=== PATIENT | female | born 1975 | race Hispanic/Latino ===

== ENCOUNTER 2021-01-30 18:52 | Emergency (ER) | payer BC, OTHER ==
[2021-01-30] MEDS ORDERED: ONDANSETRON 4MG INJ ONE (19:46)
[2021-01-30] MEDS ORDERED: 0.9%NACL 50ML 50 ML IV ONE (21:32)
== END 2021-01-30 23:21 | disposition home or self-care (01) ==
LOC: EDH 18:52
DX: R11.2 Nausea with vomiting, unspecified (principal); Z90.49 Acquired absence of other specified parts of digestive tract; Z90.710 Acquired absence of both cervix and uterus
CPT/HCPCS: 96361; 96365; 96366; 96376; 99284; J2405

== ENCOUNTER 2022-08-06 17:25 | Emergency (ER) | payer BC ==
[~2022-08-06] VITALS: Ht 157.5 cm; Wt 65.8 kg
[2022-08-06] MEDS ORDERED: LIDOCAINE HCL 2% VISCOUS 15 ML UDCUP ONE (18:04)
[2022-08-06] MEDS ORDERED: MAG/ALUM/SIMETH 30 ML UDCUP ONE (18:04)
[2022-08-06] MEDS ORDERED: LIDOCAINE HCL 2% VISCOUS 15 ML UDCUP PO ONE (18:30)
[2022-08-06] MEDS ORDERED: MAG/ALUM/SIMETH 30 ML UDCUP PO ONE (18:30)
[2022-08-06 18:41] LABS: BASOPHILS % (AUTO) 0.5 % (0.0-5.0); EOSINOPHILS % (AUTO) 0.5 % (0.0-8.0); MEAN CORPUSCULAR HEMOGLOBIN 30.9 pg (27.0-33.0); MEAN CORPUSCULAR HGB CONC 34.4 g/dL (32.0-36.0); MEAN CORPUSCULAR VOLUME 89.8 fL (79-99); MONOCYTES % (AUTO) 3.7 % (3.0-13.0); PLATELET COUNT (AUTO) 324 K/uL (130-400); RED BLOOD CELL COUNT(AUTO) 4.01 MIL/uL (4.00-5.50); RED CELL DISTRIBUTION WIDTH 12.7 % (11.0-15.5); WHITE BLOOD COUNT (AUTO) 10.1 K/uL (4.8-10.8)
[2022-08-06] MEDS ORDERED: 0.9%NACL 1000ML 1,000 ML IV ONE (18:45)
[2022-08-06 19:06] LABS: CREATININE 0.8 mg/dL (0.5-1.5); POTASSIUM 3.5 mmol/L (3.5-5.1)
[2022-08-06 19:11] LABS: ALBUMIN 3.7 g/dL (3.5-5.0); TOTAL PROTEIN, SERUM 7.6 g/dL (6.0-8.3)
[2022-08-06] MEDS ORDERED: IOHEXOL 350 MG/ML 100ML INFUS..BTL IV ONE (19:21)
[2022-08-06 19:35] VITALS: BP 118/71
== END 2022-08-06 20:25 | disposition home or self-care (01) ==
LOC: EDH 17:25
DX: K22.4 Dyskinesia of esophagus (principal); Z88.8 Allergy status to other drugs, medicaments and biological substances; Z98.890 Other specified postprocedural states
CPT/HCPCS: 99285; 71260; 96360; 96361; 80053; 85025; 36415; 70491; J7030; Q9967

== ENCOUNTER 2022-12-31 08:16 | Emergency (ER) | payer BC ==
[~2022-12-31] VITALS: Ht 157.5 cm; Wt 65.8 kg
[2022-12-31 09:12] LABS: APPEARANCE,URINE CLEAR (CLEAR); BILIRUBIN,URINE NEGATIVE (NEGATIVE); COLOR,URINE YELLOW (YELLOW); GLUCOSE, URINE (UA) NEGATIVE (NEGATIVE); KETONES,URINE NEGATIVE (NEGATIVE); LEUKOCYTE ESTERASE ,URINE NEGATIVE Leu/uL (NEGATIVE); NITRATE,URINE NEGATIVE (NEGATIVE); OCCULT BLOOD,URINE NEGATIVE (NEGATIVE); PH,URINE 5.5 (5.0-8.0); PROTEIN,URINE NEGATIVE (NEGATIVE); UROBILINOGEN,URINE 0.2 mg/dL (0.2-1.0)
[2022-12-31 09:13] LABS: BASOPHILS % (AUTO) 0.8 % (0.0-5.0); EOSINOPHILS % (AUTO) 1.8 % (0.0-8.0); HEMATOCRIT 40.6 % (36-48); LYMPHOCYTES % (AUTO) 19.9 % (21.0-51.0); MONOCYTES % (AUTO) 5.7 % (3.0-13.0); NEUTROPHILS % (AUTO) 71.5 % (40.0-77.0); PLATELET COUNT (AUTO) 370 K/uL (130-400); RED BLOOD CELL COUNT(AUTO) 4.46 MIL/uL (4.00-5.50); RED CELL DISTRIBUTION WIDTH 13.2 % (11.0-15.5); WHITE BLOOD COUNT (AUTO) 7.4 K/uL (4.8-10.8)
[2022-12-31 09:25] LABS: CREATININE 0.9 mg/dL (0.5-1.5); POTASSIUM 3.9 mmol/L (3.5-5.1)
[2022-12-31] MEDS ORDERED: ONDANSETRON 4MG INJ IVP ONE (09:30)
[2022-12-31] MEDS ORDERED: KETOROLAC 30MG VIAL (30MG/ML) IVP ONE (09:30)
[2022-12-31] MEDS ORDERED: DiphenhydrAMINE HCL 50 MG/ML VIAL IV ONE (09:30)
[2022-12-31] MEDS ORDERED: FAMOTIDINE 20MG VIAL IV ONE (09:30)
[2022-12-31 09:44] LABS: ALBUMIN 3.8 g/dL (3.5-5.0); TOTAL PROTEIN, SERUM 7.8 g/dL (6.0-8.3)
[2022-12-31] MEDS ORDERED: IOHEXOL 350 MG/ML 100ML INFUS..BTL IV ONE (10:36)
[2022-12-31 11:43] VITALS: BP 105/56
[2022-12-31] MEDS ORDERED: FAMO-136 PO (12:16)
[2022-12-31] MEDS ORDERED: SUCR1TAB28 PO (12:16)
[2022-12-31] MEDS ORDERED: OMEP20CA12 PO (12:16)
== END 2022-12-31 12:53 | disposition home or self-care (01) ==
LOC: EDH 08:16
DX: K21.9 Gastro-esophageal reflux disease without esophagitis (principal); Z90.710 Acquired absence of both cervix and uterus; Z20.822 Contact with and (suspected) exposure to COVID-19
CPT/HCPCS: 99284; 74177; 96374; 96375; 87635; 80053; 83690; 85025; 87804 ×2; 81003; 36415; C9803; J1200; J3490; J2405; J1885; Q9967

== ENCOUNTER → 2023-01-10 | Outpatient (CLI) | payer BC ==
[~2023-01-10] MED LIST: FAMO-136 PO; OMEP20CA12 PO; SUCR1TAB28 PO
== END | disposition home or self-care (01) ==
LOC: RAH 07:22
PROVIDERS: ATTEND Internal Medicine Gastroenterology
DX: R10.11 Right upper quadrant pain (principal); R93.2 Abnormal findings on diagnostic imaging of liver and biliary tract
CPT/HCPCS: 78227; A9537

== ENCOUNTER 2023-02-23 05:57 | Day surgery (SDC) | payer BC ==
[2023-02-19 11:04] LABS: BASOPHILS % (AUTO) 0.5 % (0.0-5.0); EOSINOPHILS % (AUTO) 0.8 % (0.0-8.0); HEMATOCRIT 39.5 % (36-48); LYMPHOCYTES % (AUTO) 21.9 % (21.0-51.0); MEAN CORPUSCULAR HEMOGLOBIN 30.3 pg (27.0-33.0); MEAN CORPUSCULAR HGB CONC 33.2 g/dL (32.0-36.0); MEAN CORPUSCULAR VOLUME 91.4 fL (79-99); MONOCYTES % (AUTO) 3.6 % (3.0-13.0); NEUTROPHILS % (AUTO) 72.9 % (40.0-77.0); PLATELET COUNT (AUTO) 342 K/uL (130-400); RED BLOOD CELL COUNT(AUTO) 4.32 MIL/uL (4.00-5.50); RED CELL DISTRIBUTION WIDTH 12.9 % (11.0-15.5); WHITE BLOOD COUNT (AUTO) 7.6 K/uL (4.8-10.8)
[2023-02-19 11:16] LABS: ALBUMIN 3.6 g/dL (3.5-5.0); BILIRUBIN,DIRECT 0.1 mg/dL (0.0-0.3); CREATININE 0.7 mg/dL (0.5-1.5); POTASSIUM 4.6 mmol/L (3.5-5.1); TOTAL PROTEIN, SERUM 7.7 g/dL (6.0-8.3)
[2023-02-19 11:24] VITALS: BP 116/70
[~2023-02-23] VITALS: Ht 157.5 cm; Wt 69.7 kg
[2023-02-23] VITALS (17 sets, daily range): BP systolic 97–133; BP diastolic 46–77
[~2023-02-23 05:57] MED LIST changes: +DICY10CA13 PO; +ESOM40CA54 PO; -OMEP20CA12 PO; +ONDA4TAB10 PO; -SUCR1TAB28 PO; +VITAMIN D PO
[2023-02-23] MEDS ORDERED: LACTATED RINGERS 1000ML 1,000 ML IV ONE (06:08)
[2023-02-23] MEDS: CEFAZOLIN SODIUM 2 GM VIAL ONE ×2 (06:17→07:11)
[2023-02-23] MEDS ORDERED: BUPIVACAINE/EPI/PF 0.25% 30ML VIAL IJ SCH (07:00)
[2023-02-23] MEDS ORDERED: DEXAMETHASONE SOD PHOSPHATE 10MG/ML 1ML VIAL ONE (07:11)
[2023-02-23] MEDS ORDERED: SUCCINYLCHOLINE 200MG/10ML SYR ONE (07:11)
[2023-02-23] MEDS ORDERED: LIDOCAINE PF 100MG/5ML (2%) SYRINGE 5ML ONE (07:11)
[2023-02-23] MEDS ORDERED: ONDANSETRON 4MG INJ ONE ×2 (07:11→08:50)
[2023-02-23] MEDS ORDERED: NEOSTIGMINE 5MG/5ML SYR IV ONE (07:12)
[2023-02-23] MEDS ORDERED: PROPOFOL 10 MG/ML 20ML VIAL IV ONE (07:12)
[2023-02-23] MEDS ORDERED: GLYCOPYRROLATE 1 MG/5 ML SYRINGE ONE (07:12)
[2023-02-23] MEDS ORDERED: MIDAZOLAM HCL 1 MG/ML 2ML VIAL ONE (07:12)
[2023-02-23] MEDS ORDERED: ROCURONIUM 10MG/1ML SYR 10 MG/ML ML ONE (07:12)
[2023-02-23] MEDS ORDERED: FENTANYL CITRATE PF 50 MCG/1 ML 2ML VIAL ONE ×2 (07:15→08:47)
[2023-02-23] MEDS ORDERED: IOHEXOL-350 50ML VIAL IV ONE (07:33)
[2023-02-23] MEDS ORDERED: PHENYLEPHRINE HCL 10 MG/ML 1ML VIAL IV ONE (07:44)
[2023-02-23] MEDS ORDERED: METOCLOPRAMIDE 10 MG/2 ML VIAL ONE (08:11)
[2023-02-23] MEDS ORDERED: TRAM50TA4 PO (09:35)
[2023-02-23] MEDS ORDERED: DOCU-116 PO (09:36)
== END 2023-02-23 10:10 | disposition home or self-care (01) ==
LOC: DAH 05:57
PROVIDERS: ATTEND Surgery
DX: K81.1 Chronic cholecystitis (principal); Z20.822 Contact with and (suspected) exposure to COVID-19; K82.8 Other specified diseases of gallbladder; K21.9 Gastro-esophageal reflux disease without esophagitis; Z90.710 Acquired absence of both cervix and uterus; Z82.49 Family history of ischemic heart disease and other diseases of the circulatory system; Z83.3 Family history of diabetes mellitus; Z98.890 Other specified postprocedural states
CPT/HCPCS: 80076; 80048; 85025; 87426; 36415; 47563; A4663; J7030; C1758; J7120; J3010 ×2; J0330; J3490 ×2; J1100; J2710; J2001; J2250; J2704; J2405 ×2; J2765; J2370; Q9967; J0690; A4649 ×2; A4930 ×2; A4215; A4223; A4222; A4221; A4600

== ENCOUNTER 2023-04-11 00:53 | Emergency (ER) | payer BC ==
[~2023-04-11] VITALS: Ht 157.5 cm; Wt 71.2 kg
[~2023-04-11 00:53] MED LIST changes: +DOCU-116 PO; +TRAM50TA4 PO
[2023-04-11 00:58] VITALS: BP 118/78
[2023-04-11 02:17] LABS: BASOPHILS % (AUTO) 0.4 % (0.0-5.0); EOSINOPHILS % (AUTO) 2.3 % (0.0-8.0); HEMATOCRIT 36.5 % (36-48); LYMPHOCYTES % (AUTO) 15.4 % (21.0-51.0); MEAN CORPUSCULAR HEMOGLOBIN 30.2 pg (27.0-33.0); MEAN CORPUSCULAR VOLUME 88.8 fL (79-99); MONOCYTES % (AUTO) 4.5 % (3.0-13.0); NEUTROPHILS % (AUTO) 77.1 % (40.0-77.0); PLATELET COUNT (AUTO) 354 K/uL (130-400); RED BLOOD CELL COUNT(AUTO) 4.11 MIL/uL (4.00-5.50); RED CELL DISTRIBUTION WIDTH 13.6 % (11.0-15.5); WHITE BLOOD COUNT (AUTO) 9.9 K/uL (4.8-10.8)
[2023-04-11 02:31] LABS: CREATININE 0.9 mg/dL (0.5-1.5); POTASSIUM 3.9 mmol/L (3.5-5.1)
[2023-04-11 02:35] LABS: ALBUMIN 3.5 g/dL (3.5-5.0); TOTAL PROTEIN, SERUM 7.3 g/dL (6.0-8.3)
[2023-04-11 02:40] LABS: B-TYPE NATRIURETIC PEPTIDE < 5 pg/mL (0-100)
[2023-04-11] MEDS ORDERED: IOHEXOL-350 75 ML VIAL IV ONE (02:49)
[2023-04-11] MEDS ORDERED: GUAI1TBM19 PO (03:41)
[2023-04-11] MEDS ORDERED: PRED20TA3 PO (03:41)
[2023-04-11] MEDS ORDERED: ONDANSETRON 4MG INJ IVP ONE (04:00)
[2023-04-11] MEDS ORDERED: KETOROLAC 30MG VIAL (30MG/ML) IVP ONE (04:00)
== END 2023-04-11 04:03 | disposition home or self-care (01) ==
LOC: EDH 00:53
DX: J10.1 Influenza due to other identified influenza virus with other respiratory manifestations (principal); R07.89 Other chest pain; Z90.49 Acquired absence of other specified parts of digestive tract; K21.9 Gastro-esophageal reflux disease without esophagitis; Z20.822 Contact with and (suspected) exposure to COVID-19
CPT/HCPCS: 99284; 96374; 71270; 87635; 96375; 82550; 84484; 80053; 83880; 85025; 87880; 87804 ×2; 36415; 93005; C9803; J2405; J1885; Q9967

== ENCOUNTER → 2024-01-02 | Outpatient (CLI) | payer BC ==
[~2024-01-02] MED LIST changes: -DICY10CA13 PO; +DICY10CA2 PO; +GUAI1TBM19 PO; +PRED20TA3 PO
== END ==
LOC: RAH 07:05
PROVIDERS: ATTEND Internal Medicine
DX: R11.0 Nausea (principal)
CPT/HCPCS: 78264; A9541

== ENCOUNTER 2024-03-10 21:19 | Emergency (ER) | payer BC ==
[~2024-03-10] VITALS: Ht 157.5 cm; Wt 73.0 kg
[~2024-03-10 21:19] MED LIST changes: -ESOM40CA54 PO; +ESOM40CA66 PO; +ONDA-243 PO; -ONDA4TAB10 PO
[2024-03-10 21:50] LABS: BASOPHILS # (AUTO) 0.04 K/uL (0.00-0.20); BASOPHILS % (AUTO) 0.4 % (0.0-5.0); HEMATOCRIT 35.4 % (36-48); IMMATURE GRANULOCYTE ABSOLUTE 0.04 K/uL (0-1); LYMPHOCYTES # (AUTO) 2.5 K/uL (1.0-4.8); MEAN CORPUSCULAR HEMOGLOBIN 30.3 pg (27.0-33.0); MEAN CORPUSCULAR HGB CONC 33.9 g/dL (32.0-36.0); MEAN CORPUSCULAR VOLUME 89.4 fL (79-99); MONOCYTES # (AUTO) 0.6 K/uL (0.1-1.0); MONOCYTES % (AUTO) 6.1 % (3.0-13.0); NEUTROPHILS # (AUTO) 6.7 K/uL (1.8-7.7); NEUTROPHILS % (AUTO) 66.1 % (40.0-77.0); PLATELET COUNT (AUTO) 287 K/uL (130-400); RED BLOOD CELL COUNT(AUTO) 3.96 MIL/uL (4.00-5.50); RED CELL DISTRIBUTION WIDTH 13.5 % (11.0-15.5); WHITE BLOOD COUNT (AUTO) 10.1 K/uL (4.8-10.8)
[2024-03-10 22:02] LABS: CREATININE 0.8 mg/dL (0.5-1.0); POTASSIUM 3.7 mmol/L (3.5-5.1)
[2024-03-10 22:03] LABS: INR <= 0.93 (0.85-1.15); PROTHROMBIN TIME 9.9 SEC (9.6-11.6)
[2024-03-10 22:04] LABS: APPEARANCE,URINE CLEAR (CLEAR); BILIRUBIN,URINE NEGATIVE (NEGATIVE); COLOR,URINE COLORLESS (YELLOW); GLUCOSE, URINE (UA) NEGATIVE (NEGATIVE); KETONES,URINE NEGATIVE (NEGATIVE); LEUKOCYTE ESTERASE ,URINE NEGATIVE Leu/uL (NEGATIVE); NITRATE,URINE NEGATIVE (NEGATIVE); OCCULT BLOOD,URINE NEGATIVE (NEGATIVE); PH,URINE 6.5 (5.0-8.0); PROTEIN,URINE NEGATIVE (NEGATIVE); UROBILINOGEN,URINE 0.2 mg/dL (0.2-1.0)
[2024-03-10 22:05] LABS: PARTIAL THROMBOPLASTIN TIME 24.2 SEC (26.3-35.5)
[2024-03-10 22:06] LABS: ADD UA MICROSCOPIC YES
[2024-03-10 22:07] LABS: BACTERIA,URINE RARE /HPF (None Seen); RBC,URINE 0-1 /HPF (0-1); SQUAMOUS EPITHELIAL CELL,UR RARE /HPF (0-2); WBC,URINE 0-1 /HPF (0-1)
[2024-03-10 22:07] LABS: ALBUMIN 3.5 g/dL (3.5-5.0); BILIRUBIN,TOTAL 0.2 mg/dL (0.2-1.0); TOTAL PROTEIN, SERUM 7.3 g/dL (6.0-8.3)
[2024-03-10] MEDS ORDERED: DIPHENHYDRAMINE HCL 25 MG CAPSULE PO ONE (23:00)
[2024-03-10] MEDS ORDERED: FAMOTIDINE 20MG TAB PO ONE (23:00)
[2024-03-10] MEDS: FAMOTIDINE 20MG TAB ONE (23:09)
[2024-03-10] MEDS: DIPHENHYDRAMINE HCL 25 MG CAPSULE ONE (23:09)
[2024-03-10] MEDS ORDERED: [UNRECOGNIZED DRUG - CODE] PO (23:54)
[2024-03-10] MEDS ORDERED: FAMO-136 PO (23:54)
[2024-03-10] MEDS ORDERED: DIPH-1242 PO (23:54)
[2024-03-10 23:55] VITALS: BP 118/74; PULSE 88; RESP 16; O2SAT 98
== END 2024-03-10 23:58 | disposition home or self-care (01) ==
LOC: EDH 21:19
DX: T78.49XA Other allergy, initial encounter (principal); K21.9 Gastro-esophageal reflux disease without esophagitis; Z79.899 Other long term (current) drug therapy; D69.6 Thrombocytopenia, unspecified; Z90.49 Acquired absence of other specified parts of digestive tract; Z90.710 Acquired absence of both cervix and uterus; Z98.890 Other specified postprocedural states; Z88.8 Allergy status to other drugs, medicaments and biological substances; X58.XXXA Exposure to other specified factors, initial encounter
CPT/HCPCS: 99283; 80053; 84703; 85025; 85610; 85730; 81001; 36415; Q0163

== ENCOUNTER 2024-03-14 13:59 | Emergency (ER) | payer BC ==
[~2024-03-14] VITALS: Ht 157.5 cm; Wt 71.7 kg
[~2024-03-14 13:59] MED LIST changes: +DIPH-1242 PO; +ESOM40CA54 PO; -ESOM40CA66 PO; -ONDA-243 PO; +ONDA4TAB10 PO; +[UNRECOGNIZED DRUG - CODE] PO
[2024-03-14 14:31] LABS: CREATININE 0.8 mg/dL (0.5-1.0); POTASSIUM 3.8 mmol/L (3.5-5.1)
[2024-03-14 14:36] LABS: BASOPHILS # (AUTO) 0.04 K/uL (0.00-0.20); BASOPHILS % (AUTO) 0.5 % (0.0-5.0); EOSINOPHILS # (AUTO) 0.13 K/uL (0.00-0.70); EOSINOPHILS % (AUTO) 1.6 % (0.0-8.0); HEMATOCRIT 37.8 % (36-48); IMMATURE GRANULOCYTE ABSOLUTE 0.03 K/uL (0-1); LYMPHOCYTES # (AUTO) 2.4 K/uL (1.0-4.8); LYMPHOCYTES % (AUTO) 29.7 % (21.0-51.0); MEAN CORPUSCULAR HEMOGLOBIN 30.4 pg (27.0-33.0); MEAN CORPUSCULAR HGB CONC 34.4 g/dL (32.0-36.0); MEAN CORPUSCULAR VOLUME 88.3 fL (79-99); MONOCYTES # (AUTO) 0.5 K/uL (0.1-1.0); MONOCYTES % (AUTO) 5.5 % (3.0-13.0); NEUTROPHILS # (AUTO) 5.1 K/uL (1.8-7.7); NEUTROPHILS % (AUTO) 62.3 % (40.0-77.0); PLATELET COUNT (AUTO) 350 K/uL (130-400); RED BLOOD CELL COUNT(AUTO) 4.28 MIL/uL (4.00-5.50); RED CELL DISTRIBUTION WIDTH 13.5 % (11.0-15.5); WHITE BLOOD COUNT (AUTO) 8.2 K/uL (4.8-10.8)
[2024-03-14] MEDS: DiphenhydrAMINE HCL 25 MG/10 ML ELIXIR UDCUP PO STA (14:45)
[2024-03-14 16:06] LABS: HCG,QUALITATIVE URINE NEGATIVE (NEGATIVE)
[2024-03-14 16:11] LABS: APPEARANCE,URINE CLEAR (CLEAR); BILIRUBIN,URINE NEGATIVE (NEGATIVE); COLOR,URINE COLORLESS (YELLOW); GLUCOSE, URINE (UA) NEGATIVE (NEGATIVE); KETONES,URINE NEGATIVE (NEGATIVE); LEUKOCYTE ESTERASE ,URINE NEGATIVE Leu/uL (NEGATIVE); NITRATE,URINE NEGATIVE (NEGATIVE); OCCULT BLOOD,URINE NEGATIVE (NEGATIVE); PROTEIN,URINE NEGATIVE (NEGATIVE); UROBILINOGEN,URINE 0.2 mg/dL (0.2-1.0)
[2024-03-14 16:16] LABS: BACTERIA,URINE RARE /HPF (None Seen); MUCUS,URINE RARE LPF (None Seen); RBC,URINE 0-1 /HPF (0-1); SQUAMOUS EPITHELIAL CELL,UR RARE /HPF (0-2); WBC,URINE 0-1 /HPF (0-1)
[2024-03-14 17:35] VITALS: BP 130/78; PULSE 95; RESP 18; O2SAT 99
[2024-03-14] MEDS ORDERED: LORA10TA7 PO (17:38)
[2024-03-14] MEDS ORDERED: PANT40TA55 PO (17:38)
[2024-03-14] MEDS ORDERED: PRED10TA23 PO (17:38)
== END 2024-03-14 17:46 | disposition home or self-care (01) ==
LOC: EDH 13:59
DX: T78.40XA Allergy, unspecified, initial encounter (principal); K21.9 Gastro-esophageal reflux disease without esophagitis; Z90.49 Acquired absence of other specified parts of digestive tract; Z90.710 Acquired absence of both cervix and uterus; X58.XXXA Exposure to other specified factors, initial encounter
CPT/HCPCS: 36415; 70490; 80048; 81001; 81025; 85025

== ENCOUNTER 2024-03-21 17:17 | Emergency (ER) | payer BC ==
[~2024-03-21] VITALS: Ht 157.5 cm; Wt 69.9 kg
[~2024-03-21 17:17] MED LIST changes: -ESOM40CA54 PO; +ESOM40CA66 PO; +LORA10TA7 PO; +ONDA-243 PO; -ONDA4TAB10 PO; +PANT40TA55 PO; +PRED10TA23 PO
[2024-03-21] MEDS: 0.9%NACL 1000ML 1,000 ML IV ONE (18:41)
[2024-03-21 18:49] LABS: HCG,QUALITATIVE URINE NEGATIVE (NEGATIVE)
[2024-03-21 18:50] LABS: APPEARANCE,URINE CLEAR (CLEAR); BILIRUBIN,URINE NEGATIVE (NEGATIVE); COLOR,URINE COLORLESS (YELLOW); GLUCOSE, URINE (UA) NEGATIVE (NEGATIVE); KETONES,URINE NEGATIVE (NEGATIVE); LEUKOCYTE ESTERASE ,URINE NEGATIVE Leu/uL (NEGATIVE); NITRATE,URINE NEGATIVE (NEGATIVE); OCCULT BLOOD,URINE NEGATIVE (NEGATIVE); PROTEIN,URINE NEGATIVE (NEGATIVE); UROBILINOGEN,URINE 0.2 mg/dL (0.2-1.0)
[2024-03-21 18:51] LABS: ADD UA MICROSCOPIC NO
[2024-03-21 18:56] LABS: BASOPHILS # (AUTO) 0.07 K/uL (0.00-0.20); BASOPHILS % (AUTO) 0.6 % (0.0-5.0); EOSINOPHILS # (AUTO) 0.05 K/uL (0.00-0.70); EOSINOPHILS % (AUTO) 0.4 % (0.0-8.0); HEMATOCRIT 37.7 % (36-48); IMMATURE GRANULOCYTE ABSOLUTE 0.04 K/uL (0-1); LYMPHOCYTES % (AUTO) 15.9 % (21.0-51.0); MEAN CORPUSCULAR HEMOGLOBIN 30.4 pg (27.0-33.0); MEAN CORPUSCULAR VOLUME 89.5 fL (79-99); MONOCYTES # (AUTO) 0.5 K/uL (0.1-1.0); MONOCYTES % (AUTO) 4.4 % (3.0-13.0); NEUTROPHILS # (AUTO) 9.7 K/uL (1.8-7.7); NEUTROPHILS % (AUTO) 78.4 % (40.0-77.0); PLATELET COUNT (AUTO) 351 K/uL (130-400); RED BLOOD CELL COUNT(AUTO) 4.21 MIL/uL (4.00-5.50); RED CELL DISTRIBUTION WIDTH 13.7 % (11.0-15.5); WHITE BLOOD COUNT (AUTO) 12.4 K/uL (4.8-10.8)
[2024-03-21 19:06] LABS: CREATININE 0.7 mg/dL (0.5-1.0); INR <= 0.93 (0.85-1.15); POTASSIUM 4.4 mmol/L (3.5-5.1); PROTHROMBIN TIME 10.4 SEC (9.6-11.6)
[2024-03-21 19:07] LABS: PARTIAL THROMBOPLASTIN TIME 23.6 SEC (26.3-35.5)
[2024-03-21] MEDS: FAMOTIDINE 20MG VIAL IV ONE (19:48)
[2024-03-21] MEDS: ONDANSETRON 4MG INJ IVP ONE (19:48)
[2024-03-21 20:08] VITALS: BP 108/62; PULSE 110; RESP 18; O2SAT 97
[2024-03-27] MEDS ORDERED: METH4TAB3 PO (00:43)
== END 2024-03-21 20:16 | disposition home or self-care (01) ==
LOC: EDH 17:17
DX: R53.1 Weakness (principal); E86.0 Dehydration; R13.10 Dysphagia, unspecified; R55 Syncope and collapse; K21.9 Gastro-esophageal reflux disease without esophagitis; Z88.8 Allergy status to other drugs, medicaments and biological substances; Z79.899 Other long term (current) drug therapy; Z90.711 Acquired absence of uterus with remaining cervical stump; Z90.49 Acquired absence of other specified parts of digestive tract; Z98.890 Other specified postprocedural states
CPT/HCPCS: 99284; 96374; 96361; 96375; 82550; 84484; 80048; 85025; 85610; 85730; 81003; 81025; 36415; 93005; J3490; J7030; J2405

== ENCOUNTER → 2024-03-26 | Emergency (ER) | payer BC ==
[~2024-03-26] VITALS: Ht 157.5 cm; Wt 68.5 kg
[~2024-03-26] MED LIST changes: +METH4TAB3 PO
[2024-03-26 22:09] LABS: BASOPHILS # (AUTO) 0.08 K/uL (0.00-0.20); BASOPHILS % (AUTO) 0.6 % (0.0-5.0); EOSINOPHILS # (AUTO) 0.05 K/uL (0.00-0.70); EOSINOPHILS % (AUTO) 0.4 % (0.0-8.0); HEMATOCRIT 39.5 % (36-48); IMMATURE GRANULOCYTE ABSOLUTE 0.05 K/uL (0-1); LYMPHOCYTES # (AUTO) 2.6 K/uL (1.0-4.8); LYMPHOCYTES % (AUTO) 18.3 % (21.0-51.0); MEAN CORPUSCULAR HEMOGLOBIN 30.8 pg (27.0-33.0); MEAN CORPUSCULAR HGB CONC 34.2 g/dL (32.0-36.0); MONOCYTES # (AUTO) 0.7 K/uL (0.1-1.0); MONOCYTES % (AUTO) 5.3 % (3.0-13.0); NEUTROPHILS # (AUTO) 10.5 K/uL (1.8-7.7); PLATELET COUNT (AUTO) 330 K/uL (130-400); RED BLOOD CELL COUNT(AUTO) 4.39 MIL/uL (4.00-5.50); RED CELL DISTRIBUTION WIDTH 14.2 % (11.0-15.5); WHITE BLOOD COUNT (AUTO) 13.9 K/uL (4.8-10.8)
[2024-03-26] MEDS: FAMOTIDINE 20MG VIAL IV ONE (22:15)
[2024-03-26] MEDS: SOLU-MEDROL 125MG VIAL IVP ONE (22:15)
[2024-03-26] MEDS: DiphenhydrAMINE HCL 50 MG/ML VIAL IV ONE (22:15)
[2024-03-26 22:19] LABS: CREATININE 0.6 mg/dL (0.5-1.0); POTASSIUM 4.2 mmol/L (3.5-5.1)
[2024-03-26 22:23] LABS: ALBUMIN 3.8 g/dL (3.5-5.0); BILIRUBIN,TOTAL 0.4 mg/dL (0.2-1.0); TOTAL PROTEIN, SERUM 7.3 g/dL (6.0-8.3)
[2024-03-26] MEDS: ONDANSETRON 4MG INJ IVP ONE (23:23)
[2024-03-26] MEDS: 0.9%NACL 1000ML 1,000 ML IV SCH (23:40)
[2024-03-26 23:56] LABS: APPEARANCE,URINE CLEAR (CLEAR); BILIRUBIN,URINE NEGATIVE (NEGATIVE); COLOR,URINE COLORLESS (YELLOW); GLUCOSE, URINE (UA) NEGATIVE (NEGATIVE); KETONES,URINE 60 mg/dL (NEGATIVE); LEUKOCYTE ESTERASE ,URINE NEGATIVE Leu/uL (NEGATIVE); NITRATE,URINE NEGATIVE (NEGATIVE); OCCULT BLOOD,URINE NEGATIVE (NEGATIVE); PH,URINE 6.5 (5.0-8.0); PROTEIN,URINE NEGATIVE (NEGATIVE); UROBILINOGEN,URINE 0.2 mg/dL (0.2-1.0)
[2024-03-26 23:57] LABS: ADD UA MICROSCOPIC YES
[2024-03-26 23:58] LABS: HCG,QUALITATIVE URINE NEGATIVE (NEGATIVE)
[2024-03-27] LABS: BACTERIA,URINE RARE /HPF (None Seen); RBC,URINE 0-1 /HPF (0-1); SQUAMOUS EPITHELIAL CELL,UR RARE /HPF (0-2); WBC,URINE 0-1 /HPF (0-1)
[2024-03-27 00:30] VITALS: BP 135/80; PULSE 100; RESP 18; O2SAT 99
== END | disposition home or self-care (01) ==
LOC: EDH 21:17
DX: R13.10 Dysphagia, unspecified (principal); Z88.8 Allergy status to other drugs, medicaments and biological substances; Z90.710 Acquired absence of both cervix and uterus; Z90.49 Acquired absence of other specified parts of digestive tract; Z79.899 Other long term (current) drug therapy
CPT/HCPCS: 99284; 96374; 96375; 96361; 80053; 85025; 81001; 81025; 36415; J1200; J3490; J7030; J2919; J2405

== ENCOUNTER 2024-04-23 00:23 | Emergency (ER) | payer BC ==
[~2024-04-23] VITALS: Ht 157.5 cm; Wt 68.9 kg
[2024-04-23] MEDS: ONDANSETRON 4MG INJ IVP ONE ×2 (00:58→05:27)
[2024-04-23 01:06] LABS: BASOPHILS # (AUTO) 0.06 K/uL (0.00-0.20); BASOPHILS % (AUTO) 0.5 % (0.0-5.0); EOSINOPHILS # (AUTO) 0.25 K/uL (0.00-0.70); EOSINOPHILS % (AUTO) 1.9 % (0.0-8.0); HEMATOCRIT 36.2 % (36-48); IMMATURE GRANULOCYTE ABSOLUTE 0.03 K/uL (0-1); LYMPHOCYTES # (AUTO) 2.5 K/uL (1.0-4.8); LYMPHOCYTES % (AUTO) 19.4 % (21.0-51.0); MEAN CORPUSCULAR HEMOGLOBIN 30.6 pg (27.0-33.0); MEAN CORPUSCULAR HGB CONC 34.5 g/dL (32.0-36.0); MEAN CORPUSCULAR VOLUME 88.7 fL (79-99); MONOCYTES # (AUTO) 0.7 K/uL (0.1-1.0); MONOCYTES % (AUTO) 5.6 % (3.0-13.0); NEUTROPHILS # (AUTO) 9.3 K/uL (1.8-7.7); NEUTROPHILS % (AUTO) 72.4 % (40.0-77.0); PLATELET COUNT (AUTO) 376 K/uL (130-400); RED BLOOD CELL COUNT(AUTO) 4.08 MIL/uL (4.00-5.50); RED CELL DISTRIBUTION WIDTH 13.5 % (11.0-15.5); WHITE BLOOD COUNT (AUTO) 12.8 K/uL (4.8-10.8)
[2024-04-23 01:15] LABS: RAPID GROUP A STREP negative (NEGATIVE)
[2024-04-23 01:17] LABS: CREATININE 0.7 mg/dL (0.5-1.0); POTASSIUM 3.2 mmol/L (3.5-5.1)
[2024-04-23 01:20] LABS: SARS-CoV-2, RNA, NAAT NEGATIVE SARS CoV-2 (NEGATIVE)
[2024-04-23 01:22] LABS: ALBUMIN 3.4 g/dL (3.5-5.0); BILIRUBIN,TOTAL 0.3 mg/dL (0.2-1.0); TOTAL PROTEIN, SERUM 7.2 g/dL (6.0-8.3)
[2024-04-23 01:25] LABS: INFLUENZA TYPE A Negative For Type A (NEGATIVE); INFLUENZA TYPE B Negative For Type B (NEGATIVE)
[2024-04-23] MEDS: FAMOTIDINE 20MG VIAL IV ONE (02:14)
[2024-04-23] MEDS ORDERED: FAMO20TA8 PO (02:34)
[2024-04-23] MEDS: 0.9% NACL 500ML IV.SOLN 500 ML IV ONE (03:18)
[2024-04-23] MEDS: POTASSIUM CHLORIDE 20MEQ/100ML 100 ML IV ONE (03:18)
[2024-04-23 05:34] VITALS: BP 121/69; PULSE 76; RESP 18; O2SAT 99
== END 2024-04-23 05:35 | disposition home or self-care (01) ==
LOC: EDH 00:23
DX: K21.9 Gastro-esophageal reflux disease without esophagitis (principal); R13.10 Dysphagia, unspecified; Z79.52 Long term (current) use of systemic steroids; Z79.899 Other long term (current) drug therapy; Z90.49 Acquired absence of other specified parts of digestive tract; Z90.710 Acquired absence of both cervix and uterus; Z20.822 Contact with and (suspected) exposure to COVID-19
CPT/HCPCS: 99284; 96374; 70490; 87635; 96375; 80053; 84703; 85025; 87880; 87804 ×2; 36415; 96376; J7040; J3490; J2405 ×2; J3480

== ENCOUNTER 2024-06-16 18:13 | Emergency (ER) | payer BC ==
[~2024-06-16] VITALS: Ht 157.5 cm; Wt 68.0 kg
[~2024-06-16 18:13] MED LIST changes: +FAMO20TA8 PO
[2024-06-16 18:27] VITALS: TEMP 98.2
[2024-06-16] MEDS: GLUCAGON 1MG KIT 1 MG ML IV SCH (19:29)
[2024-06-16] MEDS: ONDANSETRON 4MG INJ IVP ONE (19:30)
[2024-06-16] MEDS: FAMOTIDINE 20MG VIAL IV ONE (19:30)
[2024-06-16 19:47] VITALS: BP 139/81; PULSE 100; RESP 19; O2SAT 100
[2024-06-16] MEDS: metoCLOPRAmide 10 MG/2 ML VIAL IVP ONE (20:34)
[2024-06-16] MEDS ORDERED: FAMOTIDINE 20MG VIAL IV SCH (21:00)
== END 2024-06-16 20:48 | disposition home or self-care (01) ==
LOC: EDH 18:13
DX: R13.10 Dysphagia, unspecified (principal); Z79.899 Other long term (current) drug therapy; Z88.8 Allergy status to other drugs, medicaments and biological substances; Z90.49 Acquired absence of other specified parts of digestive tract; Z90.710 Acquired absence of both cervix and uterus; Z98.890 Other specified postprocedural states
CPT/HCPCS: 99284; 96374; 96375; J1610; J3490; J2405; J2765

== ENCOUNTER 2025-09-06 02:38 | Emergency (ER) | payer BC, OTHER ==
[~2025-09-06] VITALS: Ht 157.5 cm; Wt 63.0 kg
[~2025-09-06 02:38] MED LIST changes: +DICY-20 PO; -DICY10CA2 PO
--- NOTE | 2025-09-06 02:42 | NUR ---
UA CUP PROVIDED
--- NOTE | 2025-09-06 02:55 | NUR ---
UA COLLECTED AND SENT FOR ANY FUTURE ORDERS
--- NOTE | 2025-09-06 02:55 | ERN ---
ED Note History of Present Illness Stated Complaint: N/V/D ABD CRAMPING Chief Complaint: Multiple Complaints Time Seen by MD: 02:42 Time Seen by Midlevel: 02:42 Dictation: The patient is a 50-year-old female with a history of myotomy back in January in [place] , cholecystectomy, hysterectomy who presents to the emergency department with complaints of epigastric abdominal pain that radiates to her chest, nausea nonbloody vomiting, nonbloody diarrhea onset yesterday. Patient denies any fevers. Allergies: Coded Allergies: linaclotide (Unverified Allergy, Unknown, throat swelling, 10/04/16) Home Meds Active Scripts Famotidine (Famotidine) 20 Mg Tablet, 20 MG PO DAILY, #30 TAB 0 Refills Prov:[facility]YAN [facility]ISTA [facility] 04/23/24 Methylprednisolone (Medrol) 4 Mg Tab.ds.pk, 4 MG PO DAILY for 6 Days, #1 PACK Prov:ANTONIO SOTELO 03/27/24 Pantoprazole Sodium (Protonix) 40 Mg Ectab, 40 MG PO DAILY for 30 Days, #30 TAB.EC Prov:TERI MASTERS MD 03/14/24 Loratadine (Loratadine) 10 Mg Tablet, 10 MG PO DAILY for 30 Days, #30 TAB Prov:TERI MASTERS MD 03/14/24 Prednisone (Prednisone) 10 Mg Tab.ds.pk, 10 MG PO BID for 7 Days, #1 BOTTLE Prov:TERI MASTERS MD 03/14/24 Meclizine HCl (Dramamine) 25 Mg Tablet, 25 MG PO DAILYBKFST for 14 Days, #14 TAB Prov:GIRMA ROPER [facility] 03/10/24 Diphenhydramine HCl (Benadryl) 25 Mg Cap, 25 MG PO DAILYDINNER for 5 Days, #5 CAP Prov:GIRMA ROPER 03/10/24 Famotidine (Pepcid) 20 Mg Tablet, 20 MG PO DAILY for 5 Days, #5 TAB Prov:GIRMA ROPER 03/10/24 Prednisone (Prednisone) 20 Mg Tablet, 1 TAB PO AD for 6 Days, #14 TAB 0 Refills TAKE 3 TAB BY MOUTH daily X3 DAYS, THEN TAKE 2 TAB BY MOUTH daily X2 DAYS, THEN TAKE 1 TAB BY MOUTH ONCE A DAY X1 DAY. Prov:ABHINAV IBARRA MD 04/11/23 Guaifenesin/Dextromethorphan (Mucinex Dm ER 1,200-60 mg Tab) 1 Each Tbmp.12hr, 1 EACH PO BID, #30 TAB Prov:ABHINAV IBARRA MD 04/11/23 Famotidine (Pepcid) 20 Mg Tablet, 20 MG PO Q12H for 14 Days, #28 TAB Prov:LEILA MOULTON MD 12/31/22 Reported Medications Docusate Sodium (Colace) 100 Mg Capsule, 100 MG PO BID, CAP 02/23/23 Tramadol Hcl (Tramadol HCl) 50 Mg Tablet, 50 MG PO Q6HPRN, TAB 02/23/23 Dicyclomine HCl (Dicyclomine HCl) 10 Mg Capsule, 10 MG PO BID, CAP 02/19/23 [Vitamin D] No Conflict Check, [id number] UNIT PO WEEKLY 02/19/23 Ondansetron (Ondansetron Odt) 4 Mg Tab.rapdis, 4 MG PO Q8H PRN for NAUSEA/VOMITING, TAB 02/19/23 Esomeprazole Magnesium (Esomeprazole Magnesium) 40 Mg Capsule.dr, 40 MG PO AM, CAP 02/19/23 Past Medical History Past Medical History: Other Additional Past Medical Hx: PROBLEMS WITH ESOPHAGUS Surgical History: Hysterectomy, Cholecystectomy Surgical History Other: LEFT KNEE, MYOTOMY, PERFORATED ESOPHAGUS Family History: HTN Social History: Negative, Lives with family History: Not Applicable RN Note Reviewed/Agreed w/PFSH: Yes Review of System Dictation Constitutional: Negative for fever,chills, and weight loss Eyes: Negative for injury, pain,redness, and discharge ENT: Negative for injury,pain or swelling Cardiovascular: Negative for , palpitations, and edema positive for chest pain Respiratory: Negative for shortness of breath, cough, and wheezing, Abdomen/GI: Negative for constipation positive for abdominal pain, nausea, vomiting Back: Negative for injury and pain : Negative for injury, bleeding and discharge MS/Extremity: Negative for injury and deformity Skin: Negative for rash, and discoloration Neuro: Negative for headache, weakness, numbness, tingling, and seizure Psych: Negative for suicide ideation, homicidal ideation, and hallucinations Initial Vital Sign VS Vital Signs Date Time Temp Pulse Resp B/P (MAP) Pulse Ox O2 Delivery O2 Flow Rate FiO2 09/06/25 02:39 98.1 111 20 116/83 100 Room Air 09/06/25 02:58 0 21 Physical Exam Dictation Vital Signs reviewed General Appearance: Alert, oriented x 3, no acute distress, well developed, nourished. Head and Face: non-traumatic. Eyes: PERRL, pink conjunctivas, eyelid no trauma, anterior chamber with arcus senilis. Ears: Pinnas intact and no signs of trauma or erythema ear canals clear and no discharge TM no erythema Nose: No discharge, no bleeding. Oropharynx: Mouth normal, tongue pink. pharynx clear,no erythema, tonsils no exudates, no abscesses noted, mucous membrane moist Neck: Supple, non-tender, no thyromegaly, no masses, no JVD, no bruits Breast:Deferred Chest:No tenderness, no crepitus, no paradoxical movement, no retractions Lungs:Clear, well-ventilated, symmetric, no rales, no wheezing, no rhonchi, no stridor, good breath sounds bilaterally Heart: Regular rate, regular rhythm, no murmur, no gallops Vascular: no peripheral edema, Abdomen: Soft, positive bowel sounds, nondistended, no guarding, Epigastric tenderness,, no rebound, no masses no hepatomegaly, no splenomegaly, no Wilks's sign, no hernias. Rectal: Deferred Genital: Deferred Neurological: Normal speech, motor function intact, sensory function intact Musculoskeletal: Neck nontender, full range of motion, back nontender, full range of motion, Extremities: nontender, full range of motion Skin: Color pink, dry, no turgor, no rash, no lacerations, no abrasions, no contusions. Lymphatic: Deferred Results (Laboratory/Radiology) Laboratory/Radiology Laboratory Tests Test 09/06/25 02:55 09/06/25 03:25 Urine Color LIGHT-YELLOW (YELLOW) Urine Appearance CLEAR (CLEAR) Urine pH 6.0 (5.0-8.0) Urine Specific Corry 1.016 (1.001-1.031) Urine Protein NEGATIVE mg/dL (NEGATIVE) Urine Glucose (UA) NEGATIVE mg/dL (NEGATIVE) Urine Ketones NEGATIVE mg/dL (NEGATIVE) Urine Occult Blood NEGATIVE (NEGATIVE) Urine Nitrate NEGATIVE (NEGATIVE) Urine Bilirubin NEGATIVE mg/dL (NEGATIVE) Urine Urobilinogen 0.2 mg/dL (0.2-1.0) Urine Leukocyte Esterase NEGATIVE Daquan/uL White Blood Count 14.3 K/uL (4.8-10.8) H Red Blood Count 3.81 MIL/uL (4.00-5.50) L Hemoglobin 11.8 g/dL (12.0-16.0) L Hematocrit 34.0 % (36-48) L Mean Corpuscular Volume 89.2 fL (79-99) Mean Corpuscular Hemoglobin 31.0 pg (27.0-33.0) Mean Corpuscular Hemoglobin Concent 34.7 g/dL (32.0-36.0) Red Cell Distribution Width 13.4 % (11.0-15.5) Platelet Count 308 K/uL (130-400) Mean Platelet Volume 10.8 fL (7.5-10.5) H Immature Granulocyte % (Auto) 0.4 % (0-1) Neutrophils (%) (Auto) 83.7 % (40.0-77.0) H Lymphocytes (%) (Auto) 8.7 % (21.0-51.0) L Monocytes (%) (Auto) 6.1 % (3.0-13.0) Eosinophils (%) (Auto) 0.8 % (0.0-8.0) Basophils (%) (Auto) 0.3 % (0.0-5.0) Neutrophils # (Auto) 12.0 K/uL (1.8-7.7) H Lymphocytes # (Auto) 1.3 K/uL (1.0-4.8) Monocytes # (Auto) 0.9 K/uL (0.1-1.0) Eosinophils # (Auto) 0.12 K/uL (0.00-0.70) Basophils # (Auto) 0.05 K/uL (0.00-0.20) Absolute Immature Granulocyte (auto 0.06 K/uL (0-1) Nucleated Red Blood Cells 0.0 % (0.0-0.19) White Cell Morphology Comment See comments Sodium Level 137 mmol/L (136-145) Potassium Level 3.5 mmol/L (3.5-5.1) Chloride Level 101 mmol/L (101-111) Carbon Dioxide Level 28 mmol/L (21-32) Blood Urea Nitrogen 11 mg/dL (7-18) Creatinine 0.6 mg/dL (0.5-1.0) Glomerular Filtration Rate Calc 109 mL/min (>90) Random Glucose 112 mg/dL (70-105) H Total Calcium 8.5 mg/dL (8.5-10.1) Magnesium Level 1.80 mg/dL (1.80-2.40) Total Bilirubin 0.3 mg/dL (0.2-1.0) Direct Bilirubin 0.1 mg/dL (0.0-0.3) Aspartate Amino Transf (AST/SGOT) 15 U/L (10-37) Alanine Aminotransferase (ALT/SGPT) 14 U/L (12-78) Alkaline Phosphatase 83 U/L (50-136) Troponin I High Sensitivity 4 ng/L (4-50) Total Protein 7.1 g/dL (6.0-8.3) Albumin 3.4 g/dL (3.5-5.0) L Lipase 29 U/L (16-77) Labs Reviewed?: Yes ED Course ED Course Orders Procedure Category Date Status Time Cbc With Differential LAB 09/06/25 Complete 02:55 Troponin I High LAB 09/06/25 Complete Sensitivity 02:55 Urinalysis Profile LAB 09/06/25 Complete 02:55 12 Lead Ekg Tracing- EKG 09/06/25 Complete Technical 02:55 0.9%Nacl 1000ml (Ns PHA 09/06/25 Complete 1000ml) 03:00 Morphine 4mg Syg PHA 09/06/25 Complete (Morphine 4mg Syg) 03:00 Ondansetron 4mg Inj PHA 09/06/25 Complete (Zofran 4mg Inj) 03:00 Pantoprazole 40mg Inj PHA 09/06/25 Complete (Protonix 40mg Inj 03:00 Lipase LAB 09/06/25 Complete 02:55 Basic Metabolic Panel LAB 09/06/25 Complete 02:55 Hepatic Function Panel LAB 09/06/25 Complete 02:55 Magnesium LAB 09/06/25 Complete 02:55 Morphine 4mg Syg PHA 09/06/25 Verified (Morphine 4mg Syg) 05:30 Current Medications Medications (Trade) Dose Ordered Sig/Juwan Route PRN Reason Start Time Stop Time Status Last Admin Dose Admin Morphine Sulfate (morPHINE 4MG SYG) 4 mg ONCE ONCE IVP 09/06/25 03:00 09/06/25 03:10 DC 09/06/25 03:24 Ondansetron HCl (zoFRAN 4MG INJ) 4 mg ONCE ONCE IVP 09/06/25 03:00 09/06/25 03:10 DC 09/06/25 03:24 Pantoprazole Sodium (PROTonix 40MG INJ) 40 mg ONCE ONCE IVP 09/06/25 03:00 09/06/25 03:10 DC 09/06/25 03:24 Sodium Chloride 1,000 ml @ 0 mls/hr ONCE ONCE IV 09/06/25 03:00 09/06/25 03:10 DC 09/06/25 03:25 Vital Signs Date Time Temp Pulse Resp B/P (MAP) Pulse Ox O2 Delivery O2 Flow Rate FiO2 09/06/25 04:18 85 17 105/74 98 Room Air* 0 21 09/06/25 02:58 98.1 116 18 114/82 98 Room Air* 0 21 09/06/25 02:39 98.1 111 20 116/83 100 Room Air Medical Decision Making MDM Differential diagnosis: Viral gastroenteritis, food poisoning, gastroesophageal reflux, cholecystitis, appendicitis, pancreatitis The patient is a 50-year-old female with a history of myotomy for cricoarytenoid band, 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 Patient denies any fevers. 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 She is returning on Sunday to [place] to get the button removed. She stated that she had her dinner around 7:00 p.m. and by 10:00 p.m. began experiencing severe cramping abdominal pain nausea vomitings and diarrhea. No fever chills or rigors. Her did not eat the same food and he does not have any symptoms. Vital signs are stable patient is afebrile Labs reviewed CBC showed a white count of 14 but rest of the CMP and hemoglobin are within normal limits. EKG no acute cardiac changes. I updated the patient and spouse on the lab testing and my thought process of likely being a viral gastroenteritis or food poisoning. She responded to symptomatic treatment of fluids antiemetics and pain medications. Answered all her questions and we will discharge her to home with outpatient antiemetics. Rationale: Tests considered and ordered secondary to shared decision making include: CBC CMP Previous outside records reviewed: Old ER visits. Risk of complication and/or morbidity or mortality of patient management: None Medications-Per medication reconciliation Need for hospitalization: Patient does not meet criteria for hospitalization. Need for emergency major/minor surgery: No There are no social concerns with this patient. Prescription drug management Prescriptions will include symptomatic care I independently interpreted the test that were performed, results were reviewed by me and considered findings on radiology if ordered. Medical management and examination interpretation discussions were had by me with other qualified healthcare professionals as indicated for the patient's care. DX & DISP Disposition: Discharge Departure Impression: Primary Impression: Viral gastroenteritis Additional Impressions: Dysphagia, Atypical chest pain Condition: Stable Scripts Ondansetron (Ondansetron Odt) 4 Mg Tab.rapdis 4 MG PO Q6HPRN PRN for nausea, #16 TAB 0 Refills Prov: KEITH SHETH MD 09/06/25 Additional Instructions: Patient and the caregiver have been informed of all the diagnostic tests and the imaging conducted during the today's visit to the emergency room and has verbalized understanding of the results I have personally reviewed and interpreted all diagnostic exams performed here in the ER today as well as the vital signs documented by the nursing staff. The patient is now being discharged to home and should follow up with the primary care physician or the specialist as directed by the ER staff. Referrals: MARGE GARLAND MD (PCP) [facility] Sep 06, 2025 02:55 KEITH SHETH MD Sep 06, 2025 05:17
--- NOTE | 2025-09-06 02:56 | NUR ---
REPORT TO XIN LAWTON
--- NOTE | 2025-09-06 03:05 | EKG ---
[facility] Test Date: 2025-09-06 Test Time: 02:57:06 Pat Name: VERONICA FINK Department: 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
[2025-09-06] MEDS: 0.9%NACL 1000ML 1,000 ML IV ONE (03:25)
[2025-09-06 03:39] LABS: APPEARANCE,URINE CLEAR (CLEAR); GLUCOSE, URINE (UA) NEGATIVE (NEGATIVE); LEUKOCYTE ESTERASE ,URINE NEGATIVE Leu/uL (NEGATIVE); NITRATE,URINE NEGATIVE (NEGATIVE); OCCULT BLOOD,URINE NEGATIVE (NEGATIVE)
[2025-09-06 03:40] LABS: IMMATURE GRANULOCYTE ABSOLUTE 0.06 K/uL (0-1); NUCLEATED RED BLOOD CELLS 0.0 % (0.0-0.19); PLATELET COUNT (AUTO) 308 K/uL (130-400); RED BLOOD CELL COUNT(AUTO) 3.81 MIL/uL (4.00-5.50); RED CELL DISTRIBUTION WIDTH 13.4 % (11.0-15.5); WHITE BLOOD COUNT (AUTO) 14.3 K/uL (4.8-10.8)
[2025-09-06 03:42] LABS: ADD UA MICROSCOPIC NO
[2025-09-06 03:49] LABS: CREATININE 0.6 mg/dL (0.5-1.0); GLOMERULAR FILTR. RATE CALC 109.0 mL/min (>90); GLUCOSE,RANDOM 112.0 mg/dL (70-105); SODIUM SERUM 137.0 mmol/L (136-145); UREA NITROGEN, BLOOD 11.0 mg/dL (7-18)
[2025-09-06 03:53] LABS: ASPARTATE AMINOTRANSFERASE 15.0 U/L (10-37); TOTAL PROTEIN, SERUM 7.1 g/dL (6.0-8.3)
[2025-09-06] MEDS ORDERED: ONDA-243 PO (05:11)
[2025-09-06 05:22] VITALS: BP 106/63; PULSE 83; RESP 18; TEMP 98.2; O2SAT 100
== END 2025-09-06 06:06 | disposition home or self-care (01) ==
LOC: EDH 02:38
DX: A08.4 Viral intestinal infection, unspecified (principal); R13.10 Dysphagia, unspecified; R07.89 Other chest pain; R11.2 Nausea with vomiting, unspecified; Z79.899 Other long term (current) drug therapy; Z79.52 Long term (current) use of systemic steroids; Z90.49 Acquired absence of other specified parts of digestive tract; Z90.710 Acquired absence of both cervix and uterus
CPT/HCPCS: 99284; 96374; 96375; 96361 ×3; 80076; 83735; 84484; 80048; 83690; 85025; 81003; 36415; 96376; 93005; J7030; J2405 ×2; J2270 ×2; J2470